=== PATIENT | female | born 1950 | race Caucasian/White ===

== ENCOUNTER 2017-10-31 13:42 | Inpatient (IN) | payer MEDICARE, OTHER ==
--- NOTE | 2017-10-31 14:22 | RAD ---
PORTABLE CHEST 1 VIEW: DATE: 10/31/17. TIME: 2:01 p.m. HISTORY: Altered mental status. FINDINGS/IMPRESSION: There is blunting of the right costophrenic angle. The heart size is normal. A left internal jugula r Port-A-Cath is present with tip in the projection of the cavoatrial junction. No focal areas of co nsolidation, pneumothoraces, or left-sided pleural effusions are seen. POS: [facility]
[2017-10-31 14:28] LABS: Bilirubin Negative (Negative); Blood, Urine Trace (Negative); Clarity CLOUDY (Clear); Glucose, Urine (Dipstick) Negative (Negative); Leukocyte Negative (Negative); Nitrite Negative (Negative); Protein, Urine (Dipstick) 100 mg/dL (Neg-Trace); Specific Gravity, Urine 1.018 (1.002-1.036); Urobilinogen 0.2 mg/dL (0.2-1.0)
[2017-10-31 14:30] LABS: Bacteria/HPF None Seen HPF (None Seen); Pathc Cast-AUWi Flag 1.88 (0-2.49); RBC/HPF 0-3 HPF (0-3); Squamous Epithelial 0-3 HPF (0-3)
[2017-10-31 14:41] LABS: Yeast-AUWi Flag 121.6 (0-25.0)
[2017-10-31 14:51] LABS: Crystals/HPF 1+ AMORPH URATES HPF (Negative); Hyaline Casts/LPF 0-3 HYALINE CAST LPF (0-3 Hyaline); Other Casts/LPF None Seen LPF (0-3 Hyaline); Yeast-All Forms None Seen HPF (None Seen)
[2017-10-31 15:23] LABS: #Eosinphils 0.1 thou/uL (0.0-0.7); #Lymphocytes 0.7 thou/uL (1.20-3.40); #Monocytes 0.5 thou/uL (0.11-0.59); #Neutrophils 2.3 thou/uL (1.40-6.50); %Basophils 0.1 % (0.0-1.0); %Eosinophils 1.5 % (0.0-10.0); %Lymphocytes 20.7 % (21.0-51.0); %Monocytes 12.9 % (0.0-10.0); %Neutrophils 64.8 % (42.0-75.0); Hemoglobin 7.7 g/dL (12.0-16.0); Mean Corpuscular HGB CONC 32.7 g/dL (32.0-36.0); Mean Corpuscular Hemoglobin 35.9 pg (27.0-31.0); Mean Platelet Volume 9.2 fL (7.4-10.4); Platelet Count 65 thou/uL (130-400); RBC Distribution Width 15.5 % (11.5-14.5); Red Blood Cell (RBC) Count 2.15 mill/uL (4.20-5.40); White Blood Cell (WBC) Count 3.5 thou/uL (4.8-10.8)
[2017-10-31 15:35] LABS: ALT (SGPT) 33 U/L (8-55); AST (SGOT) 53 U/L (5-34); Acetaminophen Less than 6.0 mcg/mL (10.0-30.0); Albumin 2.6 g/dL (3.4-4.8); Alcohol Less than 10 mg/dL (Less than 10); Alkaline Phosphatase 386 U/L (40-150); Anion Gap 15 mmol/L (10-20); BUN (Urea Nitrogen) 46 mg/dL (9.8-20.1); Bilirubin, Total 0.3 mg/dL (0.2-1.2); CK (CPK) 35 U/L (29-168); Calc. Creatinine Clearance 0 mL/min (70-130); Carbon Dioxide 16 mmol/L (23-31); Chloride 114 mmol/L (98-107); Estimated GFR-MDRD 10; Globulin 2.2 g/dL (2.4-3.5); Glucose 82 mg/dL (80-115); Lipase 67 U/L (8-78); Protein, Total 4.8 g/dL (6.0-8.3); Salicylate Less than 8.0 mg/dL (15.0-30.0); Sodium 141 mmol/L (136-145)
[2017-10-31 15:36] LABS: CKMB 2.1 ng/mL (0-6.6); Troponin I Less than 0.010 ng/mL (< 0.028)
[2017-10-31 15:37] LABS: Anisocytosis SLIGHT = 6-15 cells (100X) (0-5/hpf); MDiff Complete? YES; Macrocytosis SLIGHT = 6-15 cells (100X) (0-5/hpf); PLT Morphology Comment Appears Decreased; Polychromasia SLIGHT = 2-3 cells (100X) (0-2/hpf)
--- NOTE | 2017-10-31 16:24 | CT ---
CT BRAIN NONCONTRAST: DATE: 10/31/17 TIME: 3:24 p.m. HISTORY: 67-year-old female with altered mental status. Confusion. History of small cell lung cancer, status p ost chemotherapy and immunotherapy, bacteremia. COMPARISON: None available. FINDINGS: There is an approximately 1.5 x 2.5 cm heterogeneously moderately low attenuation lesion in the poste rior aspect of the left cerebellar hemisphere. There is a much smaller, approximately 0.8 x 0.5 cm m oderately low attenuation intra-axial lesion in the upper aspect of the right frontal white matter, i n the right frontal centrum semiovale. The ventricles are normal in size and configuration. No mass effect, midline shift, or extra-axial fl uid collection. No evidence of acute intra-axial or extra-axial hemorrhage. Severe partial opacificat ion of the bilateral maxillary sinuses. Bilateral tympanomastoid cavities, sphenoid sinus, and left f rontal sinus, are grossly clear. Partial opacification of right frontal sinus. No destructive calvari al lesion identified. IMPRESSION: 1. Two focal low attenuation intra-axial lesions: a moderate sized lesion in the left cerebellum , and a small lesion in the right upper frontal lobe. Etiology is uncertain, but given the history of small cell lung cancer, it is possible that this could represent brain metastases. The evaluation is limited without IV contrast. 2. The best evaluation for brain metastases would be MRI of the brain with and without contrast. If there is a contraindication to MRI, then a contrast enhanced brain CT would be the next best alte rnative. 3. No intracranial mass effect or acute intracranial hemorrhage. MANJU Almonte POS: [facility]
[2017-10-31] MEDS ORDERED: Lorazepam 2 MG/ML VIAL ONE (16:57)
--- NOTE | 2017-10-31 17:37 | CT ---
CT ABDOMEN AND PELVIS WITHOUT CONTRAST: 10/31/17 HISTORY: Right upper quadrant pain. COMPARISON: None. FINDINGS: There is air space consolidation in the right lower lobe. There is a cavitary lesion also in the righ t lower lobe. Small right effusion. Small pericardial effusion. There is a mass in the right lobe of the liver incompletely evaluated on this examination although measures approximately 4 cm. Mild diverticular disease without active inflammation. The pancreas is visualized and is normal. There is anterior displacement of the right kidney. Mild ec db of the infrarenal abdominal aorta measuring up to 2.4 cm. No hydronephrosis. No left sided shweta l calculi. Mild degenerative changes of the lower lumbar spine. IMPRESSION: 1. Cavitary mass in the right lower lobe may be sequela of patient's malignant process given his tory. 2. Abnormal mass in the right lobe of the liver measuring up to 4 cm. Also likely other small ma sses in the liver. Given patient's history there is concern for metastatic disease. Dedicated liver p rotocol study may be beneficial. 3. No hydroureteronephrosis or nephroureterolithiasis. No secondary evidence of recently passed stone. 4. Normal appendix. POS: [facility]
[2017-10-31] MEDS ORDERED: Acetaminophen 325 MG TAB PO PRN (21:53)
[2017-10-31] MEDS ORDERED: Ondansetron HCl/PF 4 MG/2 ML Vial IVP PRN (21:53)
[2017-10-31] MEDS ORDERED: Sodium Chloride 0.9% 1,000 ML IV SCH (21:53)
[2017-10-31] MEDS ORDERED: Ondansetron ODT 4 MG TAB SL PRN (21:53)
[2017-10-31] MEDS ORDERED: Bisacodyl 10 MG SUPP PR PRN (23:15)
[2017-10-31] MEDS ORDERED: PROVENTIL INHALER 6.7 G (200 INHALATIONS) INH PRN (23:23)
[2017-10-31] MEDS ORDERED: HYDROcodone/Acetaminophen 10/325 mg Tablet PO PRN (23:23)
[2017-10-31] MEDS ORDERED: Lorazepam 1 MG TAB PO PRN (23:23)
[2017-10-31] MEDS ORDERED: Nystatin 500,000 UNITS/5 ML UDCUP PO PRN (23:23)
[2017-10-31] MEDS ORDERED: Non-Formulary Item 1 EACH (Acetaminophen [Tylenol] 325 MG) PO PRN (23:23)
[2017-10-31] MEDS ORDERED: Ondansetron ODT 4 MG TAB PO PRN (23:23)
[2017-11-01] MEDS: Sodium Chloride 0.9% 1,000 ML IV SCH ×3 (00:11→19:15)
[2017-11-01 02:18] VITALS: BMI 21.2
[2017-11-01] MEDS: Gabapentin 300 MG CAP PO SCH ×2 (02:57→08:38)
[2017-11-01] MEDS: Morphine 4 MG/ML VIAL SLOW IVP PRN ×4 (04:24→20:50)
[2017-11-01] MEDS: Lorazepam 2 MG/ML VIAL SLOW IVP PRN ×2 (04:25→23:12)
[2017-11-01 06:45] LABS: Anion Gap 13 mmol/L (10-20); BUN (Urea Nitrogen) 47 mg/dL (9.8-20.1); Calc. Creatinine Clearance 11 mL/min (70-130); Calcium 7.8 mg/dL (7.8-10.44); Carbon Dioxide 16 mmol/L (23-31); Chloride 116 mmol/L (98-107); Estimated GFR-MDRD 10; Glucose 66 mg/dL (80-115); Potassium 3.9 mmol/L (3.5-5.1); Sodium 141 mmol/L (136-145)
[2017-11-01 07:17] LABS: #Eosinphils 0.1 thou/uL (0.0-0.7); #Lymphocytes 0.7 thou/uL (1.20-3.40); #Monocytes 0.4 thou/uL (0.11-0.59); #Neutrophils 1.9 thou/uL (1.40-6.50); %Basophils 0.2 % (0.0-1.0); %Eosinophils 2.5 % (0.0-10.0); %Lymphocytes 21.8 % (21.0-51.0); %Monocytes 12.1 % (0.0-10.0); %Neutrophils 63.4 % (42.0-75.0); Hemoglobin 7.7 g/dL (12.0-16.0); MDiff Complete? YES; Macrocytosis MODERATE=16-30 cells (100X) (0-5/hpf); Mean Corpuscular HGB CONC 32.7 g/dL (32.0-36.0); Mean Platelet Volume 8.9 fL (7.4-10.4); PLT Morphology Comment Appears Decreased; Platelet Count 63 thou/uL (130-400); Polychromasia SLIGHT = 2-3 cells (100X) (0-2/hpf); RBC Distribution Width 15.8 % (11.5-14.5); Red Blood Cell (RBC) Count 2.13 mill/uL (4.20-5.40)
[2017-11-01] MEDS ORDERED: Famotidine/PF 20 mg/2ml Vial SLOW IVP SCH (09:00)
--- NOTE | 2017-11-01 10:01 | PDOC.PN ---
- Subjective Encounter Start Date: 11/01/17 Encounter Start Time: 09:58 Subjective: feel bad all over - Objective Resuscitation Status: Resuscitation Status DNR:Do Not Resuscitate MAR Reviewed: Yes Vital Signs & Weight: Vital Signs (12 hours) Temp Pulse Resp BP BP Pulse Ox 11/01/17 07:51 97.9 F 83 20 129/62 96 11/01/17 04:00 97.5 F L 76 16 120/58 L 96 10/31/17 23:53 98.1 F 94 16 131/64 92 L Weight Weight 124 lb 0.16 oz Result Diagrams: 11/01/17 06:18 11/01/17 06:18 Phys Exam - Physical Examination Neck: no JVD Respiratory: clear to auscultation bilateral anterior only Cardiovascular: RRR, no significant murmur Gastrointestinal: non-tender, positive bowel sounds Musculoskeletal: no edema Dx/Plan (1) Small cell lung cancer, right lower lobe Code(s): C34.31 - MALIGNANT NEOPLASM OF LOWER LOBE, RIGHT BRONCHUS OR LUNG Status: Acute (2) Brain metastasis Code(s): C79.31 - SECONDARY MALIGNANT NEOPLASM OF BRAIN Status: Acute (3) Liver metastases Code(s): C78.7 - SECONDARY MALIG NEOPLASM OF LIVER AND INTRAHEPATIC BILE DUCT Status: Acute (4) Pancytopenia Code(s): D61.818 - OTHER PANCYTOPENIA Status: Acute (5) Acute renal failure Status: Acute - Plan on iv decadron -: MRI brain pending -: discussed with oncology * .
[2017-11-01] MEDS ORDERED: diphenhydrAMINE 50 MG/ML VIAL IVP SCH (12:15)
[2017-11-01] MEDS: Dexamethasone 4 mg/ml Vial SLOW IVP SCH ×3 (12:41→23:12)
--- NOTE | 2017-11-01 15:35 | CON ---
DATE OF CONSULTATION: 11/01/2017 REASON FOR CONSULTATION: Possible brain metastasis. HISTORY OF PRESENT ILLNESS: Ms. Dumont is a 67-year-old female who has extensive small cell lung cancer and presented to our emergency room with altered mental status. She had a brain CT performed without contrast which showed 2 areas concerning for brain mets. There was a 1.2 x 2.5 lesion in the posterior aspect of the left cerebellar hemisphere. There was a 0.8 x 0.5 cm in the upper aspect of the right frontal white matter. An abdominal and pelvis CT performed showed a cavitary mass in the right lower lobe. She also had metastatic lesions in her liver. Patient was originally diagnosed in 2016. She received chemotherapy treatment at [facility] until 04/2017. Daughter states that she only had it in her lung initially, but then it spread to other areas of the body during chemotherapy. She underwent immunotherapy several weeks ago but after one dose had what appears to be immune mediated colitis requiring hospitalization for over 3 weeks. She did have C. difficile during that admission. Daughter states she has been in and out of the hospital and on steroids. She has only been home for approximately 2 weeks. She began to have change in mental status 2 days ago. The patient was unable to complete a sentence and was slurring her words, thus she was brought to the emergency room for evaluation. Daughter states patient's performance status is marginal. She does have her good days and bad days, but fatigues extremely easily. PAST MEDICAL HISTORY: 1. Chronic back pain. 2. Small cell carcinoma of the lung. PAST SURGICAL HISTORY: 1. Low back surgery. 2. Cholecystectomy. 3. Tubal ligation. 4. MediPort placement. ALLERGIES: ATENOLOL and PENICILLIN. CURRENT MEDICATIONS: 1. Prilosec 20 mg daily. 2. Oxycodone daily. 3. [place] p.r.n. 4. Gabapentin 600 mg daily. 5. Tizanidine b.i.d. 6. Albuterol p.r.n. FAMILY HISTORY: Noncontributory. SOCIAL HISTORY: She is and lives with her in [place]. Current everyday smoker. No alcohol or illicit drug use. REVIEW OF SYSTEMS: Unable to obtain secondary to patient's mental status. PHYSICAL EXAMINATION: VITAL SIGNS: Temperature is 97.9, pulse is 83, respiratory rate 20, BP is 129/ 62. She is 96% on room air. GENERAL: Chronically ill-appearing female, in no acute distress. HEENT: Normocephalic, atraumatic. The patient will not open her eyes for evaluation. NECK: Supple. CARDIOVASCULAR: Regular rate and rhythm. LUNGS: Clear. ABDOMEN: Soft, nontender, bowel sounds are positive. EXTREMITIES: No clubbing, cyanosis or edema. SKIN: No rash. HEMATOLOGIC: No petechia or purpura. NEUROLOGIC: The patient follows commands intermittently, unable to evaluate strength as she will not perform test asked. PERTINENT LABORATORY AND X-RAYS: Current WBCs are 3, hemoglobin 7.7, hematocrit 23.5, platelet count is 63,000. She has got 64% neutrophils, 22% lymphocytes. Sodium is 141, potassium 3.9, chloride 116, CO2 is 16, BUN is 47, creatinine is 4.54. Lactic acid is 1, calcium 7.8, total bilirubin is 0.3, AST is 53, ALT is 33, alkaline phosphatase is 386. Ammonia is 34. Troponin is less than 0.010. Serum total protein 4.8, albumin 2.6, globulin 2.2. Urine is negative for bacteria. IMPRESSION: 1. Extensive small cell lung cancer, now with new brain lesions. 2. Recent colitis with Clostridium difficile infection. 3. Chronic kidney disease 5. DISCUSSION: Approximately 60 minutes of consultation was spent with the patient. The plan is to have an MRI performed to further evaluate the brain lesions. Dr. Rosas, Radiation Oncology, will see the patient to discuss treatment options. The patient will be started on IV Decadron and hopefully her mental status will improve over the next day or so. The patient's daughter understands that this is incurable disease. She understands that if the patient is not improved with steroids, she was unlikely to receive further treatment. Our recommendation then would be directed towards comfort care and quality of life with hospice. The patient is a DNR. Thank you for the consult. We will follow her hospital course. JENNIFER
--- NOTE | 2017-11-01 22:41 | CON ---
DATE OF CONSULTATION: 11/02/2017 REASON FOR CONSULTATION: Ms. Dumont is a 67-year-old female with a known history of small cell carcinoma of the lung who has likely been diagnosed with brain metastasis. HISTORY OF PRESENT ILLNESS: Ms. Dumont was diagnosed with small-cell carcinoma of the lung in 09/2016. At that time, she had a pleural effusion and was felt to have extensive stage disease. She was started on chemotherapy and treated at [facility] by Dr. Mckeon until March. She did improve with chemotherapy. She was then followed until she showed signs of progression and in August was treated with immunotherapy. She received 1 treatment with this. Shortly after that she was hospitalized for 3 weeks at [facility]. Initially, she was thought to have C. diff, but was also thought to have colitis from the immunotherapy. She did make improvement from that and went home for about a week and then had to be rehospitalized again for bacteremia and fever. She was in the hospital for about a week and then was home for 1-2 weeks until this admission. She was doing fairly well up until about 2 days ago when she began complaining of just diffuse pain. On Sunday, she had some confusion and yesterday the confusion worsened and she became nonresponsive. She was brought by the ambulance to [place] for evaluation. She had a CT scan of the head which suggested to possible lesions in the brain. She also had a CT of the abdomen, which showed least 4-cm liver lesion in addition to a right lower lobe lung mass and a small pleural effusion. She was seen by medical oncology earlier this morning and was started on steroids. An MRI of the brain has been ordered. I was asked to see the patient to discuss options with radiation therapy. Again, she is confused and is not able to cooperate with the history and physical. The history was taken entirely by discussion with her daughter. PAST MEDICAL HISTORY: 1. History of back surgery, for which she had been on pain management in the past. 2. Nodular thyroid. 3. Varicose veins. 4. Chronic renal insufficiency. 5. Small cell cancer of the lung. 6. She denies other medical or surgical problems. MEDICATIONS: Dexamethasone, morphine, nystatin, and Neurontin. ALLERGIES: ATENOLOL, which caused swelling and PENICILLIN which caused a rash. SOCIAL HISTORY: She was still smoking at the time of admission of about 1/2 pack per day. In the past, she smoked up to 3 packs per day. She has no alcohol use. She lives in [place], [place] with her . FAMILY HISTORY: Her father from lung cancer and her mother from breast cancer. Her maternal grandmother also had breast cancer. REVIEW OF SYSTEMS: Unable to be obtained from the patient. She has been having some loose stools at times, but no diarrhea at the present time. PHYSICAL EXAMINATION: VITAL SIGNS: Height 5 feet 4 inches, weight 124 pounds, blood pressure is 118/ 55, pulse is 97, respirations are 20, temperature 97.9, O2 saturation is 96%. GENERAL: She does open her eyes when calling her name briefly, but really does not cooperate with examination. Karnofsky performance status currently is a 30% . HEENT: Pupils are equal, round, reactive to light. Extraocular movements are intact. ENT difficult as she only opens her mouth briefly. No visible lesion or thrush was seen. NECK: Supple without cervical or supraclavicular adenopathy. No thyromegaly. Larynx midline. LUNGS: Some coarse breath sounds in the bases. Otherwise, clear to auscultation. Breathing is nonlabored. HEART: Regular rate and rhythm without murmur. EXTREMITIES: No lower extremity edema. LYMPHATIC: No axillary or inguinal adenopathy. ABDOMEN: Bowel sounds present. Soft, but diffusely tender. No rebound or guarding. No mass noted. NEUROLOGIC: She does move all four extremities. Again, she does not communicate or she is not communicate very much and has difficulty following commands. She is confined to the bed. RADIOLOGIC: CT scan of the head and CT scan of the abdomen both without contrast were personally reviewed. She has at least 2 lesions in the brain. She also has a 4-cm lesion in the liver, right lower lobe lung mass, and a small pleural effusion. I do not see any osseous metastatic lesions. LABORATORY DATA AND X-RAY FINDINGS: CBC revealed a white blood cell count of 3000 and hemoglobin of 7.7, hematocrit of 23.5, platelet count of 63,000. Chemistry group showed sodium of 141 and potassium of 3.9. Carbon dioxide was 16, BUN was 47, and creatinine was 4.54. Glucose is 66. Alkaline phosphatase of 386 and albumin was 2.6. ASSESSMENT: Ms. Dumont is a 67-year-old female with an extensive stage small cell carcinoma of the lung who likely has brain metastasis. She also has a history of chronic renal insufficiency with an elevated creatinine. Her performance status is poor and at this point, she is basically bedridden and noncommunicative. PLAN: I agreed with the initiation of Decadron and obtain an MRI of the brain. Her mental status changes are potentially multifactorial. She does seem to have more mental status changes, then I would expect from the lesions in the brain, although it is possible that the 2 lesions in the brain are the main culprit of her mental status changes. If so, I would expect these to improve with steroid therapy. Also, an MRI of the brain will better define the exact extent of the disease in the brain, which may help with understanding of this. I wonder if some of her mental status changes may be related to her renal failure. What we would do for treatment of the brain depends on how she responds to her Decadron and medical management. Her performance status is so poor at this point that radiation therapy would be felt to likely not be of benefit. XRT would likely not improve her quality of life or her longevity unless her performance status improves. Thus if she remains bedridden and not able to communicate and cooperate then her best option is going to be hospice care; however, if she does improve in the next 24-48 hours with the steroids and medical management, then we could consider treatment to the brain. The typical management of brain metastases from small cell carcinoma of the lung is whole-brain radiation therapy. The logistics of radiation as well as the benefits and risks of treatment were discussed. Side effects would include but not be limited to skin reaction, fatigue, lower blood counts, hair losses may be permanent, headache, nausea, vomiting, and small risk of damage to her normal brain. Time was taken to answer all of her daughter's questions. We will follow her with you over the next day or two to see how clinically she does. We will also follow up on the results of the MRI when that is obtained as well. Thank you for this consultation. JENNIFER
[2017-11-02] MEDS: Lorazepam 2 MG/ML VIAL SLOW IVP PRN ×2 (04:53→09:09)
[2017-11-02] MEDS: Dexamethasone 4 mg/ml Vial SLOW IVP SCH ×3 (05:00→17:22)
[2017-11-02] MEDS: Sodium Chloride 0.9% 1,000 ML IV SCH ×2 (05:12→15:30)
[2017-11-02 05:13] LABS: Anion Gap 21 mmol/L (10-20); BUN (Urea Nitrogen) 50 mg/dL (9.8-20.1); Calc. Creatinine Clearance 10 mL/min (70-130); Calcium 7.8 mg/dL (7.8-10.44); Chloride 119 mmol/L (98-107); Estimated GFR-MDRD 9; Glucose 128 mg/dL (80-115); Potassium 4.6 mmol/L (3.5-5.1); Sodium 144 mmol/L (136-145)
[2017-11-02 05:14] LABS: #Lymphocytes 0.6 thou/uL (1.20-3.40); #Monocytes 0.1 thou/uL (0.11-0.59); #Neutrophils 3.1 thou/uL (1.40-6.50); %Basophils 0.7 % (0.0-1.0); %Eosinophils 0.8 % (0.0-10.0); %Lymphocytes 15.3 % (21.0-51.0); %Monocytes 1.8 % (0.0-10.0); %Neutrophils 81.3 % (42.0-75.0); Hemoglobin 8.2 g/dL (12.0-16.0); Mean Corpuscular HGB CONC 32.4 g/dL (32.0-36.0); Mean Corpuscular Hemoglobin 35.7 pg (27.0-31.0); Mean Platelet Volume 8.4 fL (7.4-10.4); Platelet Count 70 thou/uL (130-400); RBC Distribution Width 15.7 % (11.5-14.5); Red Blood Cell (RBC) Count 2.29 mill/uL (4.20-5.40); White Blood Cell (WBC) Count 3.8 thou/uL (4.8-10.8)
[2017-11-02 05:23] LABS: Carbon Dioxide 9 mmol/L (23-31)
[2017-11-02] MEDS: Morphine 4 MG/ML VIAL SLOW IVP PRN ×4 (07:21→22:05)
--- NOTE | 2017-11-02 09:17 | PDOC.PN ---
- Subjective Encounter Start Date: 11/02/17 Encounter Start Time: 09:16 Subjective: confused - Objective Resuscitation Status: Resuscitation Status DNR:Do Not Resuscitate MAR Reviewed: Yes Vital Signs & Weight: Vital Signs (12 hours) Temp Pulse Resp BP Pulse Ox 11/02/17 08:00 97.4 F L 106 H 24 H 96 11/02/17 07:53 97.4 F L 106 H 24 H 153/67 H 96 Weight Weight 124 lb 0.16 oz I&O: 11/01/17 11/02/17 11/03/17 06:59 06:59 06:59 Intake Total 1450 Balance 1450 Result Diagrams: 11/02/17 04:55 11/02/17 04:55 Phys Exam - Physical Examination Neck: no JVD Respiratory: clear to auscultation bilateral Cardiovascular: RRR, no significant murmur Gastrointestinal: soft, non-tender, positive bowel sounds Musculoskeletal: no edema Dx/Plan (1) Small cell lung cancer, right lower lobe Code(s): C34.31 - MALIGNANT NEOPLASM OF LOWER LOBE, RIGHT BRONCHUS OR LUNG Status: Acute (2) Brain metastasis Code(s): C79.31 - SECONDARY MALIGNANT NEOPLASM OF BRAIN Status: Acute (3) Liver metastases Code(s): C78.7 - SECONDARY MALIG NEOPLASM OF LIVER AND INTRAHEPATIC BILE DUCT Status: Acute (4) Pancytopenia Code(s): D61.818 - OTHER PANCYTOPENIA Status: Acute (5) Acute renal failure Status: Acute - Plan MRI brain pending -: cont iv decadron * .
[2017-11-02] MEDS: Gabapentin 300 MG CAP PO SCH (09:20)
--- NOTE | 2017-11-02 12:49 | MRI ---
MRI BRAIN NONCONTRAST: DATE: 11/02/17 HISTORY: 67-year-old female with small cell lung cancer. Status post chemotherapy and immunotherapy with alter ed mental status: confusion and brain lesions found on noncontrast brain CT. Dr. Remy notified Becky Wright, at the hotel front desk agent of the Cancer [facility] located at [facility], by telephone at 1013 hours on 11/02/17, of the findings. She was instructed to notify Nurse Practitioner , Suri Wiseman, of the brain lesions consistent with metastases. TECHNIQUE: Noncontrast MRI was performed, presumably because of renal dysfunction, but the exact reason is curre ntly unknown. FINDINGS: There is an approximately 2.5 x 2 x 1 cm intra-axial mass in the posterior medial upper aspect of the left cerebellar hemisphere, corresponding to the lesion found on CT. It has predominantly fluid sign al intensity, surrounded by a thin rim of hyperintense signal in FLAIR, and peripheral components irish t have restricted diffusion. At the far peripheral lateral aspect of the right cerebellar hemisphere, there is a tiny focus of res tricted diffusion (axial images 34 of 54, series 6; 7 of 27, series 7), which is too small to visuali ze on the other sequences without contrast administration. In the left occipital lobe, there is an approximately 1.2 x 0.8 x 0.7 cm metastatic lesion which also has central fluid signal intensity, and a thin peripheral rim of FLAIR hyperintensity and restricted diffusion. In the right upper frontal lobe white matter, there is an approximately 1.5 x 2.0 x 1.5 cm metastatic lesion that also has central fluid signal intensity, and a moderately thick rim of FLAIR and T2 hype rintensity with restricted diffusion. This was also noted on the CT. The ventricles are normal in size and configuration. No mass effect or midline shift. No extra-axial fluid collection. All images are degraded by patient motion. Patient is unable to cooperate fully for the examination. IMPRESSION: 1. A total of four intra-axial focal lesions, two in the cerebellum, one in the left occipital lobe, and one in the right frontal lobe. 2. Given the history of small cell lung cancer, these are probably partially cystic brain metastases . The other possibility would be multiple brain abscesses, considered less likely. MANJU R JOESPH JOHNSON. POS: [facility]
[2017-11-03] MEDS: Dexamethasone 4 mg/ml Vial SLOW IVP SCH ×4 (00:39→17:52)
[2017-11-03] MEDS: Sodium Chloride 0.9% 1,000 ML IV SCH ×3 (00:43→20:16)
[2017-11-03] MEDS: Morphine 4 MG/ML VIAL SLOW IVP PRN ×3 (05:21→17:52)
[2017-11-03 05:37] LABS: #Lymphocytes 0.4 thou/uL (1.20-3.40); #Monocytes 0.3 thou/uL (0.11-0.59); #Neutrophils 3.5 thou/uL (1.40-6.50); %Basophils 0.5 % (0.0-1.0); %Eosinophils 0.4 % (0.0-10.0); %Lymphocytes 9.5 % (21.0-51.0); %Monocytes 6.3 % (0.0-10.0); %Neutrophils 83.3 % (42.0-75.0); Hemoglobin 8.3 g/dL (12.0-16.0); Mean Corpuscular HGB CONC 32.5 g/dL (32.0-36.0); Mean Corpuscular Hemoglobin 35.4 pg (27.0-31.0); Mean Platelet Volume 8.1 fL (7.4-10.4); Platelet Count 76 thou/uL (130-400); RBC Distribution Width 15.8 % (11.5-14.5); Red Blood Cell (RBC) Count 2.33 mill/uL (4.20-5.40); White Blood Cell (WBC) Count 4.2 thou/uL (4.8-10.8)
[2017-11-03 05:44] LABS: Anion Gap 14 mmol/L (10-20); BUN (Urea Nitrogen) 61 mg/dL (9.8-20.1); Calc. Creatinine Clearance 10 mL/min (70-130); Calcium 7.6 mg/dL (7.8-10.44); Carbon Dioxide 14 mmol/L (23-31); Chloride 121 mmol/L (98-107); Estimated GFR-MDRD 8; Glucose 181 mg/dL (80-115); Potassium 4.6 mmol/L (3.5-5.1); Sodium 144 mmol/L (136-145)
[2017-11-03] MEDS: Lorazepam 2 MG/ML VIAL SLOW IVP PRN ×2 (06:33→21:22)
[2017-11-03] MEDS: Gabapentin 300 MG CAP PO SCH (10:03)
--- NOTE | 2017-11-03 10:08 | PDOC.PN ---
- Subjective Encounter Start Date: 11/03/17 Encounter Start Time: 10:06 Subjective: more alert. conversational - Objective Resuscitation Status: Resuscitation Status DNR:Do Not Resuscitate MAR Reviewed: Yes Vital Signs & Weight: Vital Signs (12 hours) Temp Pulse Resp BP Pulse Ox 11/03/17 08:00 97.8 F 71 16 180/80 H 98 Weight Admit Weight 124 lb 0.16 oz Weight 124 lb 0.16 oz I&O: 11/02/17 11/03/17 11/04/17 06:59 06:59 06:59 Intake Total 1450 2820 Balance 1450 2820 Result Diagrams: 11/03/17 05:22 11/03/17 05:22 Radiology Reviewed by me: Yes (MRI- 4 lesions) Phys Exam - Physical Examination Neck: no JVD Respiratory: clear to auscultation bilateral Cardiovascular: RRR, no significant murmur Gastrointestinal: soft, positive bowel sounds Musculoskeletal: no edema Neurological: non-focal Dx/Plan (1) Small cell lung cancer, right lower lobe Code(s): C34.31 - MALIGNANT NEOPLASM OF LOWER LOBE, RIGHT BRONCHUS OR LUNG Status: Acute (2) Brain metastasis Code(s): C79.31 - SECONDARY MALIGNANT NEOPLASM OF BRAIN Status: Acute (3) Liver metastases Code(s): C78.7 - SECONDARY MALIG NEOPLASM OF LIVER AND INTRAHEPATIC BILE DUCT Status: Acute (4) Pancytopenia Code(s): D61.818 - OTHER PANCYTOPENIA Status: Acute (5) Acute renal failure Status: Acute - Plan cont iv decadron -: oncology to reevaluate in 2 days * .
--- NOTE | 2017-11-03 18:30 | EKG ---
Test Reason : Blood Pressure : / mmHG Vent. Rate : 093 BPM Atrial Rate : 093 BPM P-R Int : 134 ms QRS Dur : 072 ms QT Int : 352 ms P-R-T Axes : 059 021 041 degrees QTc Int : 437 ms Normal sinus rhythm Normal ECG Confirmed by BRUCE OLSON D.O. ([id number]), social media editor MADELAINE CHIU ([id number]) on 11/03/2017 6:29:50 PM Referred By: Confirmed By:BRUCE OLSON D.O.
[2017-11-03] MEDS: GUAIFENESIN FS PRN (19:15)
[2017-11-03] MEDS: CODEINE FS PRN (19:15)
[2017-11-04] MEDS: Dexamethasone 4 mg/ml Vial SLOW IVP SCH ×5 (00:39→23:23)
[2017-11-04] MEDS: Morphine 4 MG/ML VIAL SLOW IVP PRN (02:56)
[2017-11-04] MEDS: Lorazepam 2 MG/ML VIAL SLOW IVP PRN (05:39)
[2017-11-04] MEDS: Sodium Chloride 0.9% 1,000 ML IV SCH ×2 (05:42→15:41)
[2017-11-04] MEDS: Gabapentin 300 MG CAP PO SCH (09:11)
--- NOTE | 2017-11-04 10:38 | PDOC.PN ---
- Subjective Encounter Start Date: 11/04/17 Encounter Start Time: 09:45 -: non-verbal Pt seen and examined, chart reviewed in its entirety, this is my first visit with this patient. Daughter at bedside. Pt less alert than yesterday, had a good evening, but today more lethargic. complaining of headace. complaining of hurting all over. thought is not as clear, speech isw slow, sentences incomplete. No acute events overnight - Objective Resuscitation Status: Resuscitation Status DNR:Do Not Resuscitate MAR Reviewed: Yes Vital Signs & Weight: Vital Signs (12 hours) Temp Pulse Resp BP Pulse Ox 11/04/17 09:00 178/74 H 11/04/17 08:00 97.7 F 61 20 178/74 H 98 11/04/17 03:50 97.2 F L 66 16 176/78 H 100 Weight Admit Weight 124 lb 0.16 oz Weight 124 lb 0.16 oz I&O: 11/03/17 11/04/17 11/05/17 06:59 06:59 06:59 Intake Total 2820 3020 120 Balance 2820 3020 120 Result Diagrams: 11/03/17 05:22 11/03/17 05:22 Radiology Reviewed by me: Yes EKG Reviewed by me: Yes Phys Exam - Physical Examination Constitutional: NAD sleepy, arousable, slow speech, left ptosis HEENT: PERRLA, moist MMs, sclera anicteric, 2+ tonsils Neck: no nodes, no JVD, supple, full ROM Respiratory: no wheezing, no rales, no rhonchi, clear to auscultation bilateral Cardiovascular: RRR, no significant murmur, no rub Gastrointestinal: non-tender, positive bowel sounds Musculoskeletal: pulses present, edema present Neurological: normal sensation, moves all 4 limbs ;efrt weaker than right Lymphatic: no nodes Deviation from normal: oriented to person, year and month, thinks shes at [employer] Skin: no rash, normal turgor, cap refill <2 seconds Dx/Plan (1) Acute renal failure Status: Acute Qualifiers: Acute renal failure type: unspecified Qualified Code(s): N17.9 - Acute kidney failure, unspecified Comment: Cr up today to 5.1. not a huge ibarra ein renal function, will reivew chart for sedating medicine and adjust. Family considering hospice (2) Brain metastasis Code(s): C79.31 - SECONDARY MALIGNANT NEOPLASM OF BRAIN Status: Acute Comment: Dr Dinh chaney to see in am again. notes reviewed. Family considering hospice (3) Liver metastases Code(s): C78.7 - SECONDARY MALIG NEOPLASM OF LIVER AND INTRAHEPATIC BILE DUCT Status: Acute (4) Pancytopenia Code(s): D61.818 - OTHER PANCYTOPENIA Status: Acute (5) Small cell lung cancer, right lower lobe Code(s): C34.31 - MALIGNANT NEOPLASM OF LOWER LOBE, RIGHT BRONCHUS OR LUNG Status: Acute - Plan cont current plan of care, plan discussed w/ family, PT/OT, respiratory therapy * .
[2017-11-04 10:45] LABS: Anion Gap 13 mmol/L (10-20); BUN (Urea Nitrogen) 67 mg/dL (9.8-20.1); Calc. Creatinine Clearance 10 mL/min (70-130); Calcium 7.6 mg/dL (7.8-10.44); Carbon Dioxide 15 mmol/L (23-31); Chloride 121 mmol/L (98-107); Estimated GFR-MDRD 9; Glucose 140 mg/dL (80-115); Potassium 4.4 mmol/L (3.5-5.1); Sodium 145 mmol/L (136-145)
[2017-11-04] MEDS: GUAIFENESIN FS PRN (18:25)
[2017-11-04] MEDS: CODEINE FS PRN (18:25)
[2017-11-04 20:08] VITALS: TEMP 97.9
[2017-11-05] MEDS: Lorazepam 2 MG/ML VIAL SLOW IVP PRN (00:53)
[2017-11-05] MEDS: Sodium Chloride 0.9% 1,000 ML IV SCH ×2 (01:03→11:07)
[2017-11-05] MEDS: Morphine 4 MG/ML VIAL SLOW IVP PRN ×3 (04:51→15:24)
[2017-11-05] MEDS: Dexamethasone 4 mg/ml Vial SLOW IVP SCH ×3 (05:01→17:30)
[2017-11-05 08:43] VITALS: BP 178/76
[2017-11-05] MEDS: Gabapentin 300 MG CAP PO SCH (09:19)
[2017-11-05] MEDS ORDERED: guaiFENesin/Codeine Phosphate 200 mg/20 mg 10 ml UD Cup PO PRN (09:27)
--- NOTE | 2017-11-05 10:44 | PQF ---
CLINICAL DOCUMENTATION IMPROVEMENT CLARIFICATION FORM: ICD-10 Updated PLEASE DO AN ADDENDUM TO THE PROGRESS NOTE WITH ANY DOCUMENTATION UPDATES OR ADDITIONS AND CARRY THROUGH TO DC SUMMARY. THANK YOU. DATE: 11/05 ATTN: SABRINA DE LA CRUZ Please exercise your independent, professional judgment in responding to the clarification form. Clinical indicators are provided on the bottom of this form for your review Please check appropriate box(s): [ ] Encephalopathy: Type: [ ] Acute [ ] Subacute [ ] Chronic [ ] Unspecified [ ] Other (please specify) [ ] Other diagnosis [ ] Unable to determine For continuity of documentation, please document condition throughout progress notes and discharge summary. Thank You. CLINICAL INDICATORS - SIGNS / SYMPTOMS / LABS ER PHYSICIAN DOCUMENTATION 10/31: PT PRESENTS FOR EVALUATION OF AMS PHYSICIAN PN 11/02 - CONFUSED; PN 11/03 - MORE ALERT, CONVERSATIONAL PN 11/04 - NON-VERBAL, LESS ALERT THAN YESTERDAY, MORE LETHARGIC CT BRAIN 10/31: IMPRESSION: 1) MODERATE SIZED LESION IN THE LEFT CEREBELLUM & A SMALL LESION IN R UPPER FRONTAL LOBE MRI BRAIN 11/02: IMPRESSION: 1) FOUR INTRA-AXIAL FOCAL LESIONS, TWO IN CEREBELLUM, ONE IN L OCCIPITAL LOBE, & ONE IN R FRONTAL LOBE. THESE ARE PROBABLY PARTIALLY CYSTIC BRAIN METASTASES RISK FACTORS: METASTATIC SMALL CELL LUNG CANCER SECONDARY NEOPLASMS TO BRAIN TREATMENTS: ONCOLOGY CONSULT RADIATION ONCOLOGY CONSULT IV RASHAWNADRON (11/01 - PRESENT) THANK YOU! Ailyn See discharge Summary (This form is maintained as a part of the permanent medical record) 2014 [employer]. All Rights Reserved Ailyn Choe RN, BSN [email or web address] Office: [phone] [facility] HOSPITALJanki
--- NOTE | 2017-11-05 11:23 | HP ---
CHIEF COMPLAINT: Confusion. HISTORY OF PRESENT ILLNESS: This is a 67-year-old female with a known history of small cell lung can cer, previously on chemotherapy and immunotherapy who presented with a chief complaint of confusion, was brought in by the patient's daughter who is with her at bedside. The patient currently is unfort unately a poor historian and the majority of her history is provided by her daughter at bedside. It appears that the patient does have a known history of small cell lung cancer. It is predominantly treated in [place] initially with chemotherapy back in April with a "good response." The patient was more recently started on immunotherapy in August and received her first dose after which she subs equently had a hospitalization for bacteremia and C. diff. She just finished 4 weeks of IV antibioti cs including 2 grams of cefepime q.12h. for 4 weeks. Her last dose was the day prior to admission. Since then, the patient has been demonstrating altered mental status which is predominantly described as erratic behavior and tangential conversation which is not typical for her. In the emergency department, the patient had cerebral imaging which demonstrated metastases to the br ain, which are new as per the patient's daughter who states that the patient did have a similar imagi ng of the brain which was negative several months ago. REVIEW OF SYSTEMS: CONSTITUTIONAL: No significant recent weight changes. However, the patient has had a progressive we ight loss over the last year. The patient's daughter at bedside denies any fevers or chills. Please note that the review of systems is essentially completed by the patient's daughter at bedside as the patient herself is currently somnolent, but arousable, but declines to participate in the review of systems. HEENT: Denies any new headaches, vision changes or lightheadedness. CARDIOVASCULAR: Denies any chest pain or chest pressure. RESPIRATORY: Denies any new cough, upper respiratory type infection, congestion or shortness of nathalie th. GASTROINTESTINAL: Denies any nausea, vomiting or abdominal pain. Denies any recent issues with diar luz maria or constipation. GENITOURINARY: Denies any dysuria, change in urinary quality, quantity or frequency. MUSCULOSKELETAL: Denies any new myalgias or arthralgias. The remainder of the review of systems otherwise negative. PAST MEDICAL HISTORY: As per above. Small cell lung cancer with metastases now to the brain. Chroni c kidney disease, stage 5. Nodular thyroid and varicose veins. PAST SURGICAL HISTORY: Status post tubal ligation, status post cholecystectomy. HOME MEDICATIONS: Please see the EMR for full details. Her list includes ondansetron 4 mg p.o. q.4h . p.r.n., omeprazole 20 mg p.o. daily, Nystatin 1000 units p.o. b.i.d. p.r.n., Lorazepam 1 mg p.o. t. i.d. p.r.n., hydrocodone/acetaminophen 1 tab p.o. q.i.d. p.r.n., Gabapentin 600 mg p.o. daily, albut lizabeth 2 puffs inhalation q.4h. p.r.n., acetaminophen 325 mg p.o. as directed p.r.n. ALLERGIES: ATENOLOL, unknown reaction, PENICILLIN, unknown reaction. FAMILY HISTORY: The patient does have a known family history of cancer including lung cancer in her own mother. SOCIAL HISTORY: The patient is a former half pack a day smoker and denies any alcohol or illicit vinita g use. The patient's daughter at bedside is her designated medical decision maker if the patient is unable to make her own medical decisions. Please see the advance care planning note as the patient's daughter had a discussion at the patient's bedside, the patient is to be a do not resuscitate, do no t intubate and they are contemplative of hospice. PHYSICAL EXAMINATION: GENERAL: The patient is awake. She is arousable. She is conversant when aroused. HEENT: Normocephalic, atraumatic. Ocular motions are intact. Slightly dry mucous membranes. CARDIOVASCULAR: S1, S2. No murmurs, rubs or gallops. Pulses 2+ bilateral upper extremities, no pit ting pedal edema. RESPIRATORY: No wheezes, rales or rhonchi. Marginal air movement. No conversational dyspnea. ABDOMEN: Positive bowel sounds, soft, nontender to palpation. NEUROLOGIC: Moving all 4 extremities on command. LABORATORY DATA AND IMAGING: WBC 3.5, hemoglobin 7.7, hematocrit 23.6, platelets 65. Sodium 141, po tassium 4.0, chloride 114, bicarbonate 16, BUN 46, creatinine 4.56, glucose 82. Lactic acid 1.0, carmella cium 8.0, total bilirubin 0.3, AST 53, ALT 33, alkaline phosphatase 386. Troponin less than 0.01. T otal protein 4.8, albumin 2.6, lipase 67. UA significant for trace ketones, trace blood, 100 protein , 4-6 WBCs. IMAGING: CT of the abdomen and pelvis. Impression; "cavitary mass in the right lower lobe, may be s equela of the patient's malignant process given history. Abdominal mass in the right lobe of the rig ht lobe of the liver measuring up to 4 cm. Also, likely other small masses in the liver. Given the patient's history there is concern for metastatic disease. Dedicated liver protocol study may be nicole eficial. No hydroureteronephrosis or nephroureterolithiasis. No secondary evidence of recently pass ed stone". 10/31/2017 - Brain CT. Impression: Two focal low attenuation intraaxial lesions, a moderate sized l esion in the left cerebellum and a small lesion in the right upper frontal lobe. Etiology is uncerta in, but given the history of small cell lung cancer, it is possible that this could represent brain m etastases. The evaluation was limited without IV contrast. The best evaluation for brain metastases would be a MRI of the brain with and without contrast. If there is contraindication to MRI than a c ontrast enhanced brain CT would be the next best alternative. No intracranial mass effect or acute i ntracranial hemorrhage. 10/31/2017 - Chest x-ray. Impression: There is blunting of the right costophrenic angle. The heart size is normal. The left internal jugular Port-A-Cath present with tip in the projection of the cav oatrial junction. No focal areas of consolidation pneumothoraces or left-sided pleural effusions are seen". ASSESSMENT AND PLAN: This is a 67-year-old female with a known history of small cell lung cancer, no w noted to be metastatic to her brain presenting with a chief complaint of altered mental status. 1. Altered mental status, potentially related to her metastases. For the time being the patient jorge luis l be seen by Oncology. Her primary oncologists are at [facility]. Wonder if the patient is a c andidate for any component of consideration for radiation versus steroids and a repeat imaging of her brain. I have discussed with the patient and her daughter that the patient's overall prognosis is e xtremely guarded at this point in time and that palliation may or may not improve either the quality or the quantity of life that she may expect at this point in time. The patient's daughter is amenabl e to consideration for hospice services at least to initiate the conversation at this point in time. 2. Chronic kidney disease stage 5. The patient's daughter is aware of the patient having renal dysf unction. The patient appears to be grossly urinating at her baseline. She will continue with IV hyd ration and close monitoring of her renal function as well. 3. Pancytopenia. Continue to monitor. The patient does have noted thrombocytopenia, leukopenia and anemia. 4. DVT prophylaxis with sequentials, hold on chemical prophylaxis at this point in time. DIET: As tolerated. ACTIVITY: As tolerated. Consult case management. Consult palliative care. Thank you for asking me to care for the patient.
--- NOTE | 2017-11-05 15:35 | PDOC.PN ---
- Subjective Encounter Start Date: 11/05/17 Encounter Start Time: 09:45 Pt much more awake and alert today. No f/c, no n/V/D/c, no CP or SOB. Discussed with family. Discussed with [facility]. plan to admit today to [facility]. gus po, doesnt like thickener for liquids no CADENA, less pain meds overnight - Objective Resuscitation Status: Resuscitation Status DNR:Do Not Resuscitate MAR Reviewed: Yes Vital Signs & Weight: Vital Signs (12 hours) Temp Pulse Resp BP Pulse Ox 11/05/17 08:00 97.9 F 64 18 178/76 H 96 Weight Admit Weight 124 lb 0.16 oz Weight 124 lb 0.16 oz I&O: 11/04/17 11/05/17 11/06/17 06:59 06:59 06:59 Intake Total 3020 1800 Balance 3020 1800 Result Diagrams: 11/03/17 05:22 11/04/17 10:15 Phys Exam - Physical Examination Constitutional: NAD HEENT: PERRLA, moist MMs, sclera anicteric, oral pharynx no lesions Neck: no nodes, no JVD, supple, full ROM Respiratory: no wheezing, no rales, no rhonchi, clear to auscultation bilateral Cardiovascular: RRR, no significant murmur, no rub Gastrointestinal: soft, non-tender, no distention, positive bowel sounds Musculoskeletal: pulses present, edema present Neurological: non-focal, normal sensation, moves all 4 limbs Lymphatic: no nodes Psychiatric: normal affect Skin: no rash, normal turgor, cap refill <2 seconds Dx/Plan (1) Acute renal failure Status: Acute Qualifiers: Acute renal failure type: unspecified Qualified Code(s): N17.9 - Acute kidney failure, unspecified Comment: Cr back to 4.8x.. to hospice this evening, will sign off when they are on. (2) Brain metastasis Code(s): C79.31 - SECONDARY MALIGNANT NEOPLASM OF BRAIN Status: Acute Comment: Dr Clement this AM again. notes reviewed. to Hospice (3) Liver metastases Code(s): C78.7 - SECONDARY MALIG NEOPLASM OF LIVER AND INTRAHEPATIC BILE DUCT Status: Acute (4) Pancytopenia Code(s): D61.818 - OTHER PANCYTOPENIA Status: Acute (5) Small cell lung cancer, right lower lobe Code(s): C34.31 - MALIGNANT NEOPLASM OF LOWER LOBE, RIGHT BRONCHUS OR LUNG Status: Acute - Plan cont current plan of care, plan discussed w/ family, social research assistant * .
--- NOTE | 2017-11-06 08:46 | DIS ---
PRIMARY CARE PHYSICIAN: Out of town. DATE OF ADMISSION: 10/31/2017 DATE OF DISCHARGE: 11/05/2017 DISCHARGE DIAGNOSES: 1. Right lower lobe small lung cell cancer with metastasis to the liver and new metastasis to the br ain. 2. Pancytopenia. 3. Acute kidney injury. 4. Metabolic encephalopathy. 5. Chronic kidney disease stage 5. 6. Moderate protein calorie malnutrition. 7. Chronic back pain. CONSULTATIONS: 1. Oncology, Ms. Suri Wiseman and Dr. Nazario Rubio. 2. Radiation Oncology, Dr. Nir Rosas, both on 11/01/2017. PROCEDURES: Brain MRI 11/02/2017 that showed 4 metastatic lesions in the brain with surrounding maci a. HISTORY AND PHYSICAL: Ms. Dumont is a 67-year-old female with the above history who follows up with an outside oncologist presented to our emergency department on 10/31/2017 with confusion. Addison p was largely unremarkable. She did receive some sodium chloride and some Ativan. She was noted to have a creatinine of almost 5. We subsequently called for admission. The patient was admitted by Dr. Tona Bales, placed on medicine to help keep her comfortable and Oncology and Radiation Oncology consults were obtained. Of note, the patient remained stable. She was somewhat somnolent due to pain medications. She was s een by Oncology and by Radiation Oncology. They recommended MRI which was obtained. MRI was done th e following morning. Due to her declining condition and what the family felt was the inability for the patient to handle t he information, the new metastatic lesions of the brain were not shared. She continued on symptomati c treatment through the weekend and I took the case over on 11/04/2017. The plans were for Radiation Oncology to follow her up on Sunday11/05/2017 and reevaluate her for possible treatments versus pal liative care. By 11/05/2017, she was more awake and alert. She did not require any pain medicine overnight. She w as seen by Dr. Rosas who did not recommend any radiation treatments. After a long discussion with th e family, it was decided to change her to a hospice care. She was transitioned to [facility] and di scharged from our service. The plan was to keep her in [facility] for this week and if she continue d to do okay and was stable for transfer home to transition her to home hospice. PHYSICAL EXAMINATION: The patient was seen and examined on the date of discharge. Discharge plan and disposition were discussed with the patient. I also discussed with her an d her daughter. DISCHARGE MEDICATIONS: None. Medicines to be written on admission to [facility]. DISCHARGE ACTIVITY: As tolerated. DISCHARGE DIET: A soft mechanical with normal liquids with risk. FOLLOWUP: Follow up with [facility] care, [facility].
== END 2017-11-05 19:23 | disposition hospice, inpatient (51) | DRG 54 ==
LOC: ERS 13:42 → ONC 19:31
PROVIDERS: ADMIT Internal Medicine; ATTEND Internal Medicine
DX: C79.31 Secondary malignant neoplasm of brain (principal); G93.41 Metabolic encephalopathy; N18.5 Chronic kidney disease, stage 5; D61.818 Other pancytopenia; N17.9 Acute kidney failure, unspecified; E44.0 Moderate protein-calorie malnutrition; C78.7 Secondary malignant neoplasm of liver and intrahepatic bile duct; C34.31 Malignant neoplasm of lower lobe, right bronchus or lung; D69.6 Thrombocytopenia, unspecified; M54.9 Dorsalgia, unspecified; G89.29 Other chronic pain; Z51.5 Encounter for palliative care; F17.210 Nicotine dependence, cigarettes, uncomplicated; Z85.118 Personal history of other malignant neoplasm of bronchus and lung; Z90.49 Acquired absence of other specified parts of digestive tract; Z88.8 Allergy status to other drugs, medicaments and biological substances; Z88.0 Allergy status to penicillin
CPT/HCPCS: 36415; 51701; 70450; 70551; 71045; 74176; 80048; 80053; 80307; 81003; 81015; 82140; 82274; 82553; 83605; 83690; 84484; 85025; 87040; 87086; 87324; 87449; 93005; 96361; 96374; A4216; A4353; G8981-GP-CN; G8982-GP-CL; G8996-GN-CJ; G8996-GN-CK; G8997-GN-CI; G8997-GN-CJ; J1100; J1200; J2060; J2270; S0028

== ENCOUNTER 2017-11-05 19:41 | Inpatient (IN) | payer OTHER ==
[2017-11-05] MEDS ORDERED: Ondansetron HCl/PF 4 MG/2 ML Vial IVP PRN (20:21)
[2017-11-05] MEDS ORDERED: Scopolamine 1.5 mg/72 hour Patch TOP PRN (20:21)
[2017-11-05] MEDS ORDERED: PROVENTIL INHALER 6.7 G (200 INHALATIONS) INH PRN (20:25)
[2017-11-05] MEDS ORDERED: Bisacodyl 10 MG SUPP PR PRN (20:26)
[2017-11-05] MEDS ORDERED: Morphine 4 MG/ML VIAL SLOW IVP PRN ×2 (20:28)
[2017-11-05] MEDS: Sodium Chloride 0.9% 1,000 ML IV SCH (20:49)
[2017-11-06] MEDS: Dexamethasone 4 mg/ml Vial SLOW IVP SCH ×5 (00:06→23:48)
[2017-11-06] MEDS: Lorazepam 2 MG/ML VIAL SLOW IVP SCH ×5 (00:06→23:54)
[2017-11-06] MEDS: Morphine 4 MG/ML VIAL SLOW IVP SCH ×7 (01:17→23:59)
[2017-11-06] MEDS: Sodium Chloride 0.9% 1,000 ML IV SCH (06:43)
[2017-11-06 12:54] VITALS: BMI 21.7
[2017-11-07] MEDS: Dexamethasone 4 mg/ml Vial SLOW IVP SCH ×3 (05:02→18:10)
[2017-11-07] MEDS: Morphine 4 MG/ML VIAL SLOW IVP SCH ×3 (05:03→14:17)
[2017-11-07] MEDS: Lorazepam 2 MG/ML VIAL SLOW IVP SCH ×2 (06:33→14:16)
[2017-11-07] MEDS ORDERED: Morphine 4 MG/ML VIAL ONE (15:19)
[2017-11-07] MEDS: Morphine 4 MG/ML VIAL SLOW IVP PRN ×2 (16:12→19:38)
[2017-11-07] MEDS: Lorazepam 2 MG/ML VIAL SLOW IVP PRN (19:38)
[2017-11-08] MEDS: Dexamethasone 4 mg/ml Vial SLOW IVP SCH ×5 (01:05→23:03)
[2017-11-08] MEDS: Morphine 4 MG/ML VIAL SLOW IVP PRN ×3 (03:19→23:03)
[2017-11-08] MEDS: Lorazepam 2 MG/ML VIAL SLOW IVP PRN ×2 (05:47→23:04)
[2017-11-08] MEDS ORDERED: Furosemide 40 MG/4 ML VIAL ONE (09:01)
[2017-11-09] MEDS: Lorazepam 2 MG/ML VIAL SLOW IVP PRN (06:46)
[2017-11-09] MEDS: Morphine 4 MG/ML VIAL SLOW IVP PRN ×3 (06:46→23:38)
[2017-11-09] MEDS: Dexamethasone 4 mg/ml Vial SLOW IVP SCH ×4 (06:47→23:39)
[2017-11-09] MEDS ORDERED: Morphine 4 MG/ML VIAL SLOW IVP SCH ×2 (17:00→21:00)
[2017-11-09] MEDS ORDERED: Morphine 5 MG/ML SYRINGE SLOW IVP SCH ×2 (17:00→21:00)
[2017-11-09] MEDS: Morphine 4 MG/ML VIAL SLOW IVP SCH ×2 (18:10→21:30)
[2017-11-09] MEDS: Lorazepam 2 MG/ML VIAL SLOW IVP SCH ×2 (18:29→23:40)
[2017-11-10] MEDS: Morphine 4 MG/ML VIAL SLOW IVP SCH ×6 (02:27→20:15)
[2017-11-10] MEDS: Lorazepam 2 MG/ML VIAL SLOW IVP SCH ×3 (05:53→17:47)
[2017-11-10] MEDS: Dexamethasone 4 mg/ml Vial SLOW IVP SCH ×3 (05:55→17:47)
[2017-11-10 09:06] VITALS: BP 165/77; TEMP 98
[2017-11-10] MEDS ORDERED: Scopolamine 1.5 mg/72 hour Patch TOP PRN (15:54)
[2017-11-10] MEDS: Morphine 4 MG/ML VIAL SLOW IVP PRN (15:54)
--- NOTE | 2017-11-13 08:57 | HP ---
DATE OF ADMISSION: 11/05/2017 HISTORY OF PRESENT ILLNESS: The patient is a 67-year-old white female with a known history of small cell carcinoma of the lung with metastatic disease. She presented to the emergency room at [facility] on 10/31/2017, with confusion. Workup did show that she had metastatic lesi ons that were new to the brain and Radiation Oncology was consulted, Dr. Nir Rosas, who did not rec ommend any radiation treatment. After prolonged discussion with the family, it was decided the eloise nt was most appropriate for hospice care and she was admitted to [facility] inpatient hosp[facility] for [facility] on 11/05/2017. PAST MEDICAL HISTORY: Small cell carcinoma of the lung with metastases to the brain, chronic renal d isease stage 5, nodular thyroid history, varicose vein history reported. PAST SURGICAL HISTORY: Status post tubal ligation and cholecystectomy. HOME MEDICATIONS: Prior to admission, the patient was on Zofran 4 mg ODT p.r.n. nausea, omeprazole 2 0 mg daily, Nystatin 1000 units p.o. b.i.d., lorazepam 1 mg p.o. t.i.d., [place] 1 tablet p.o. q.6 hour s p.r.n. pain, gabapentin 600 mg p.o. daily, albuterol 2 puffs q.4 hours p.r.n. shortness of breath, acetaminophen p.r.n. pain. ALLERGIES: ATENOLOL and PENICILLIN. FAMILY HISTORY: The patient has a history of carcinoma of the lung with her mother. SOCIAL HISTORY: The patient is a former half pack per day history of smoker. Denies alcohol or soci al drug use. The patient's daughter who was at her bedside most of her hospitalization was the medic al decision maker. The patient is unable to make her own decisions. The patient has been independen t prior to her diagnosis of cancer. PHYSICAL EXAMINATION: GENERAL: Awake, frail white female, but sedated and falling asleep during the exam, obvious cough an d respiratory difficulty during exam noted as well. VITAL SIGNS: Blood pressure was not checked, pulse 110, respiratory rate was 26. HEENT: Extraocular movements are intact. Oropharynx, mucous membranes were dry. NECK: Supple, no masses palpated. CHEST: Had diffuse rhonchi with rales and wheezes bilaterally. HEART: Rapid, but regular rate and rhythm. ABDOMEN: Scaphoid, flat, nontender, nondistended. No masses palpated. EXTREMITIES: Showed thin extremities x4. No lesions were noted. ASSESSMENT: Small cell carcinoma of the lung, metastatic to the brain, terminal. The patient is not amenable to any radiation, chemo, or other therapies. The patient and family have decided to go to hospice care and comfort measures only. The patient's life expectancy is less than 7 days. We will keep her inpatient in the hospital for comfort measures, IV treatment as needed as well as oxygen. I f she stabilizes, may be able to be discharged home, but with a life expectancy of less than 7 days, suspect she will pass away in the hospital.
--- NOTE | 2017-11-13 09:45 | DS ---
DATE OF ADMISSION: 11/05/2017 ADMISSION DIAGNOSIS: Terminal metastatic lung carcinoma, metastatic to the brain without further lenny atment available. HOSPITAL COURSE: Patient was admitted to hospice after being seen in the emergency room and in the h ospital for acute confusion. She was admitted on 11/05/2017. She was treated with comfort measures only. NOTE: The patient was found by staff on 11/10/2017 with Mookie-Gross breathing and then she t ook her last breath and passed on 2150 hours. There was no pulse, no respirations, no blood pressure . RN pronounced the patient at the bedside. Family was there and was comforted and hospice nurse oleg Darrius was called as well and body was released to the morgue. CAUSE OF : Asystole, status post cardiac arrhythmia secondary to respiratory failure from metas tatic lung cancer.
== END 2017-11-10 21:50 | disposition expired | DRG 951 ==
LOC: ONC 19:41
PROVIDERS: ADMIT Family Medicine; ATTEND Family Medicine
DX: Z51.5 Encounter for palliative care (principal); J96.90 Respiratory failure, unspecified, unspecified whether with hypoxia or hypercapnia; C34.90 Malignant neoplasm of unspecified part of unspecified bronchus or lung; C79.31 Secondary malignant neoplasm of brain; N18.5 Chronic kidney disease, stage 5; I46.8 Cardiac arrest due to other underlying condition; Z87.891 Personal history of nicotine dependence; Z88.0 Allergy status to penicillin; Z88.8 Allergy status to other drugs, medicaments and biological substances; Z79.899 Other long term (current) drug therapy
CPT/HCPCS: J2270; A4216; J1100; J1642; J1940; J2060